=== PATIENT | female | born 1965 | race Caucasian/White ===

== ENCOUNTER → 2021-04-15 | Day surgery (SDC) | payer OTHER ==
[~2021-04-15] VITALS: Ht 154.9 cm; Wt 90.7 kg
[~2021-04-15] MED LIST: LEVOTHYROXINE150 MC1 PO; NORCO 5-325 TA1 EACH PO; PAXIL40 MG PO; PRINIVIL20 MG PO
[2021-04-15 12:20] LABS: BASOPHIL 0.8 % (0-2); HGB 13.6 g/dl (12.5-16.0); LYMPHOCYTE 43.2 % (15-48); MCH 29.4 pg (25.0-31.0); MCHC 32.4 g/dL (32.0-36.0); MCV 90.9 fL (78.0-100.0); MONOCYTE 4.5 % (0-12); MPV 10.6 fL (6.0-9.5); NEUTROPHIL 49.2 % (41-80); NRBC 0; PLT 305 K/uL (150-400); RBC 4.62 M/uL (4.20-5.40); RDW 13.3 % (11.5-14.0); WBC 7.6 K/uL (4.0-10.5)
[2021-04-15 12:40] LABS: BILIRUBIN - TOTAL 0.4 mg/dL (0.2-1.0); BUN/CREAT RATIO (CALC) 32.1 RATIO; CREATININE 0.56 mg/dL (0.51-0.95); GLOBULIN (CALCULATION) 4.1 g/dL; POTASSIUM 4.3 mmol/L (3.5-5.1); TOTAL PROTEIN 8.1 g/dL (6.4-8.2)
== END | disposition home or self-care (01) ==
LOC: FAS 11:41
PROVIDERS: Oral & Maxillofacial Surgery
DX: K02.9 Dental caries, unspecified (principal); K05.6 Periodontal disease, unspecified; K04.7 Periapical abscess without sinus; I10 Essential (primary) hypertension; E03.9 Hypothyroidism, unspecified; F41.9 Anxiety disorder, unspecified; F32.9 Major depressive disorder, single episode, unspecified; E66.9 Obesity, unspecified; M17.10 Unilateral primary osteoarthritis, unspecified knee; Z79.899 Other long term (current) drug therapy; Z88.1 Allergy status to other antibiotic agents; Z20.822 Contact with and (suspected) exposure to COVID-19
CPT/HCPCS: D7140; D7210; 36415; 71045; 80053; 85025; 93005; J1100; J1885; J2250; J2405; J2704; J3010; J7120; U0002